=== PATIENT | female | born 1985 | race Caucasian/White ===

== ENCOUNTER → 2023-09-20 | Outpatient (CLI) | payer MEDICAID ==
[2023-09-20 15:33] LABS: Basophils # (A) 0.04 X 10*3/uL (0.00-0.10); Basophils % (A) 1.1 %; Eosinophils % (A) 2.7 %; HCT 35.8 % (37.2-46.3); HGB 11.3 g/dL (12.0-15.0); Lymphocytes # (A) 1.49 X 10*3/uL (0.90-5.00); Lymphocytes % (A) 39.7 %; MCH 25.1 pg (27.0-32.0); MCHC 31.6 g/dL (32.0-37.0); MCV 79.4 FL (80.0-97.0); Mean Platelet Volume 10.6 FL (9.5-12.2); Monocytes # (A) 0.41 X 10*3/uL (0.20-1.00); Monocytes % (A) 10.9 %; NRBC Per 100 WBC 0 X 10*3/uL (0.00-0.01); Neutrophils % (A) 45.3 %; Platelet Count 275 X 10*3/uL (140-440); RBC 4.51 X 10*6/uL (4.10-5.20); RDW 14.2 % (11.5-14.5); WBC 3.75 X 10*3/uL (4.50-10.00)
[2023-09-20 16:18] LABS: ALT 33 U/L (8-44); AST 25 U/L (13-35); Albumin 4.6 g/dL (3.8-4.9); Albumin/Globulin Ratio 1.77 Ratio (1.60-3.17); Alkaline Phosphatase 112 U/L (41-126); Alpha Fetoprotein, Tumor Mkr <3.00 ng/mL (0.00-7.90); BUN/Creat Ratio 13.25 Ratio (12.00-20.00); Blood Urea Nitrogen 10.6 mg/dL (9.0-27.0); Calcium 9.5 mg/dL (8.7-10.3); Carbon Dioxide 24.4 mmol/L (21.6-31.8); Chloride 102 mmol/L (96-109); Globulin 2.6 g/dL (1.6-3.3); Glucose 92 mg/dL (70-110); Potassium 4.1 mmol/L (3.5-5.5); Sodium 139 mmol/L (135-145); Total Bilirubin 0.3 mg/dL (0.3-1.2); Total Protein 7.2 g/dL (6.2-8.2)
[2023-09-20 16:21] LABS: Immunoglobulin M <35.0 mg/dL (40.0-280.0)
== END | disposition home or self-care (01) ==
LOC: LABWHC1 12:04
PROVIDERS: ATTEND Internal Medicine
DX: Z71.85 Encounter for immunization safety counseling (principal); D80.1 Nonfamilial hypogammaglobulinemia; J32.8 Other chronic sinusitis; J41.1 Mucopurulent chronic bronchitis; H65.33 Chronic mucoid otitis media, bilateral; H93.233 Hyperacusis, bilateral; E66.09 Other obesity due to excess calories; L80 Vitiligo; B97.7 Papillomavirus as the cause of diseases classified elsewhere; R87.619 Unspecified abnormal cytological findings in specimens from cervix uteri; B36.0 Pityriasis versicolor; J45.20 Mild intermittent asthma, uncomplicated; I88.1 Chronic lymphadenitis, except mesenteric; A60.00 Herpesviral infection of urogenital system, unspecified; D13.4 Benign neoplasm of liver; D13.5 Benign neoplasm of extrahepatic bile ducts; K76.0 Fatty (change of) liver, not elsewhere classified; R74.8 Abnormal levels of other serum enzymes; J84.10 Pulmonary fibrosis, unspecified; E66.9 Obesity, unspecified; I88.8 Other nonspecific lymphadenitis; H90.6 Mixed conductive and sensorineural hearing loss, bilateral; Z79.899 Other long term (current) drug therapy
CPT/HCPCS: 36415; 80053; 82105; 82784; 85025

== ENCOUNTER → 2024-04-28 | Outpatient (CLI) | payer MEDICAID ==
--- NOTE | 2024-04-28 11:55 | US ---
EXAMINATION TYPE: US pelvis complete transvag DATE OF EXAM: 04/28/2024 COMPARISON: NONE CLINICAL INDICATION: Female, 38 years old with history of N93.9 HEAVY BLEEDING WITH IUD; Heavy vag bl eed since IUD placed 5 yrs ago TECHNIQUE: Transvaginal (TV) and Transabdominal (TA) . Transabdominal grayscale sonographic images of the pelvis were acquired. Transvaginal sonographic im ages were medically necessary to better assess the following anatomy: Doppler imaging: Not performed. FINDINGS: Date of LMP: 04/27/2024 EXAM MEASUREMENTS: Uterus: 7.9x4.1x6.0 cm Endometrial Stripe: not visualized Right Ovary: 2.9x2.1x2.4 cm Left Ovary: 3.0x1.6x1.8 cm 1. Uterus: Anteverted heterogenous, large fibroid measuring 4.7x3.4x3.8 2. Endometrium: not visualized due to large fibroid. No IUD visualized within endometrium 3. Right Ovary: wnl 4. Left Ovary: wnl 5. Bilateral Adnexa: Obscured by overlying bowel gas 6. Posterior cul-de-sac: wnl exam limited by large Fibroid IMPRESSION: 1. Leiomyomatous change of the uterus limiting evaluation of the endometrium. IUD not clearly visuali zed. [facility], , 04/28/2024 11:53 AM
== END | disposition home or self-care (01) ==
LOC: RADUSWWP 09:59
PROVIDERS: ATTEND Obstetrics & Gynecology
DX: N93.9 Abnormal uterine and vaginal bleeding, unspecified (principal); D25.9 Leiomyoma of uterus, unspecified
CPT/HCPCS: 76830; 76856

== ENCOUNTER → 2024-04-30 | Outpatient (CLI) | payer MEDICAID ==
--- NOTE | 2024-04-30 11:28 | XR ---
EXAMINATION TYPE: XR KUB DATE OF EXAM: 04/30/2024 10:33 AM COMPARISON: Ultrasound 04/28/2024 CLINICAL INDICATION: Female, 38 years old with history of IUD PLACEMENT HX FIBROSIS, COMPARE TO PELVI C US 04/28/24; [facility] TECHNIQUE: One radiographic view of the abdomen was obtained. FINDINGS: No evidence for IUD. Correlate clinically. The bowel gas pattern is nonspecific without dil ated loops of small or large bowel. . Fecal material and gas are demonstrated throughout the colon an d rectum. There is no evidence for organomegaly or pneumoperitoneum. The osseous structures are inta ct. No abnormal calcifications are present. IMPRESSION: No IUD is identified in the pelvis. [facility], , 04/30/2024 11:25 AM
== END | disposition home or self-care (01) ==
LOC: RADXRMAIN 10:16
PROVIDERS: ATTEND Obstetrics & Gynecology
DX: N85.8 Other specified noninflammatory disorders of uterus (principal); Z92.0 Personal history of contraception
CPT/HCPCS: 74018

== ENCOUNTER → 2024-05-16 | Outpatient (CLI) | payer MEDICAID ==
--- NOTE | 2024-05-19 11:57 | MR ---
EXAMINATION TYPE: MR abdomen wo/w con DATE OF EXAM: 05/16/2024 2:08 PM COMPARISON: CT scan abdomen from 02/06/2022. CLINICAL INDICATION: Female, 38 years old with history of K76.89 OTHER SPECIFIED DISEASES OF LIVER; P HH, F/U liver lesion TECHNIQUE: Multiplanar multi-sequence imaging was performed without contrast. Post contrast imaging was performed. Post IV contrast subtraction images were also submitted for review. IV Contrast: 10 mL Gadobutrol FINDINGS: LOWER CHEST: No gross irregularity. ABDOMEN Liver: No evidence for cirrhosis. Signal dropout on chemical shift out of phase imaging. Multiple hig h T2 signal lesions are seen throughout the liver with majority of them having nodular borders. Appro ximately 10 lesions identified with the largest in segment 4Ar measuring up to 10.5 x 6.0 cm. Compare d to prior in 02/06/2022 where it measured r8.6 x 5.2 cm. All the other lesions are larger compared to 2022 is well right lateral liver 9.1 cm lesion previously 7.4 cm left segment 2/3 lesion measuring 3 .9 cm, previously 3.4 cm as examples. These lesions demonstrate peripheral nodular discontinuous enha ncement which persists on delayed imaging. Gallbladder and Bile ducts: No evidence for ductal dilation, or biliary stricture or evidence of chol edocholithiasis. The gallbladder is within normal limits. Pancreas: No ductal dilation. No evidence for solid mass. Spleen: Normal for size. Adrenal glands: Unremarkable. Kidneys: No evidence for obstructive uropathy. No suspicious renal masses. Left renal simple appearin g cyst on prior now has low T2 high T1 signal. Measuring 16 mm. r up to smaller focus superiorly of h igh T1 signal layering 7 mm Stomach and Bowel: No evidence for bowel wall thickening or evidence for obstruction. Retroperitoneum/Peritoneum: No evidence of pneumoperitoneum or free fluid. Vasculature: No aortic aneurysm. Musculoskeletal: The osseous structures appear intact. Lymph Nodes: No gross evidence for lymphadenopathy. Abdominal wall: Unremarkable. IMPRESSION: 1. Multiple lesions throughout the liver which have increased in size slightly from 202. These have enhancement patterns most compatible with hemangiomas. 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 Hepatic steatosis. 3. 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 [facility], , 05/19/2024 11:54 AM
== END | disposition home or self-care (01) ==
LOC: RADMRIMAIN 13:14
PROVIDERS: ATTEND Internal Medicine
DX: K76.89 Other specified diseases of liver (principal); K76.0 Fatty (change of) liver, not elsewhere classified; N28.1 Cyst of kidney, acquired
CPT/HCPCS: 74183; A9585